=== PATIENT | female | born 1935 | race Two or more races ===

== ENCOUNTER 2023-11-26 11:39 | Outpatient (REF) | payer OTHER, SELFPAY ==
[2023-11-26 14:09] LABS: Creatinine Urine 63.38 mg/dL; Microalbum/Creatinine Ratio Ur 343.9 ug/mg cr (<30)
== END 2023-11-26 11:40 | disposition home or self-care (01) ==
LOC: HO.HHCL 11:39
PROVIDERS: Visit Provider Internal Medicine Geriatric Medicine
DX: E11.69 Type 2 diabetes mellitus with other specified complication (principal); E11.22 Type 2 diabetes mellitus with diabetic chronic kidney disease; I13.0 Hypertensive heart and chronic kidney disease with heart failure and stage 1 through stage 4 chronic kidney disease, or unspecified chronic kidney disease; I50.32 Chronic diastolic (congestive) heart failure; N18.9 Chronic kidney disease, unspecified; Z79.4 Long term (current) use of insulin
CPT/HCPCS: 82043; 82570

== ENCOUNTER 2024-02-28 15:39 | Outpatient (REF) | payer OTHER, SELFPAY ==
[2024-02-28 18:07] LABS: Anion Gap 15 (12-20); Blood Urea Nitrogen 43 mg/dL (9-16); Carbon Dioxide 25 mmol/L (22-29); Chloride 107 mmol/L (96-108); Estimated Glomerular Filt Rate 18; Glucose Random 110 mg/dL (60-115); Potassium 3.7 mmol/L (3.3-5.1); Sodium 143 mmol/L (135-145)
== END 2024-02-28 15:40 | disposition home or self-care (01) ==
LOC: HO.HHCL 15:39
PROVIDERS: Visit Provider Internal Medicine Geriatric Medicine
DX: E11.22 Type 2 diabetes mellitus with diabetic chronic kidney disease (principal); N18.9 Chronic kidney disease, unspecified
CPT/HCPCS: 36415; 80048

== ENCOUNTER 2024-03-16 13:40 | Outpatient (AMB) | payer OTHER, SELFPAY ==
[2024-03-16 13:29] VITALS: BP 122/48; PULSE 76; O2SAT 96
--- NOTE | 2024-03-16 13:29 | HO.NEPHOV_ITS ---
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 She has not had a hemoglobin A1c recently. She has history of breast cancer congestive heart failure. She is in a wheelchair usually but ambulates around her apartment. She denies any nausea, vomiting, diarrhea, shortness of breath, paroxysmal nocturnal dyspnea or orthopnea. She does not take any nonsteroidal anti-inflammatories. She denies any orthostatic symptoms. She has been on angiotensin receptor jayne. Her blood pressure is at goal at home. She does not have any epistaxis, photosensitivity, hematemesis, melena, hematuria, dysuria, flank pain or any new systemic complaints. She claims to be compliant with her medications. Her recent serum creatinine is 2.57. [facility] Medical History Congestive heart failure Asthma Breast cancer, left Coronary artery disease Arthritis Anxiety Hx: UTI (urinary tract infection) Stress incontinence Hyperlipidemia Hypertension Diabetes Surgical History S/P lumpectomy, left breast H/O tubal ligation Family History Daughter History of bilateral breast cancer Daughter History of colon cancer Father Diabetes Mother Heart disease Social History Household Members: Children Housing: Apartment Do you presently have visiting nurse or other home services: Yes (DIGITAL ASSET SPECIALIST) Alcohol intake: never Patient Tobacco Use Status: Never used Tobacco Advance Directives Date on File: 11/25/20 service: No Current occupational status: retired Review of Systems Const All systems reviewed & are unremarkable except as noted in HPI and below Physical Exam Vital Signs: Last Vital Signs Pulse 76 03/16/24 13:29 BP 122/48 L 03/16/24 13:29 Pulse Ox 96 03/16/24 13:29 Oxygen Delivery Method Room Air 03/16/24 13:29 Const General: comfortable and no acute distress Orientation/consciousness: patient oriented x3 HEENT Head: Yes normocephalic Mouth: Normal oral and palatal mucosa present Eyes EOM: EOMs intact bilaterally Neck Neck: Yes supple Resp Auscultation: clear to auscultation bilaterally Cardio Jugular venous distension: no JVD Rate: regular rate Heart sounds: Murmur heart sound present GI Palpation (GI): Soft to palpation Auscultation: normal bowel sounds Neuro General: patient oriented x3 and moves all extremities Results Reviewed Nephrology Results: Hgb 11.0 g/dl (12.0-16.0) L 01/21/24 WBC 8.2 X10*3/uL (4.8-10.8) 01/21/24 Plt Count 294 X10*3/uL (160-400) 01/21/24 Sodium 143 mmol/L (135-145) 02/28/24 Potassium 3.7 mmol/L (3.3-5.1) 02/28/24 Chloride 107 mmol/L (96-108) 02/28/24 Carbon Dioxide 25 mmol/L (22-29) 02/28/24 BUN 43 mg/dL (9-16) H 02/28/24 Creatinine 2.57 mg/dL (0.5-1.4) H 02/28/24 Calcium 9.0 mg/dL (8.4-10.2) 02/28/24 Renal US 04/16/24 Assessment & Plan Assessment & Plan (1) Hypertension: Code(s): I10 - Essential (primary) hypertension Category: Medical Qualifiers: Hypertension type: primary hypertension Qualified Code(s): I10 - Essential (primary) hypertension (2) CKD stage 3b, GFR 30-44 ml/min: Code(s): N18.32 - Chronic kidney disease, stage 3b Category: Medical Plan Marina has diabetic hypertensive renal disease. She is on angiotensin receptor jayne. She maintains good hydration. Her blood pressure is at goal at home. She has no orthostatic symptoms. I ordered renal imaging and CKD blood work. She avoids nonsteroidal anti-inflammatories. She is a great candidate for SGLT2 inhibitor which I plan to initiate at the next visit after reviewing her lab data. I did not make any medication changes today. I explained to her about the stages of chronic kidney disease , its progression and management strategies. Answered all questions. Follow-up appointment given. Orders: Orders Complete Blood Count Auto Diff 03/16/24 N18.32 - Chronic kidney disease, stage 3b, I10 - Essential (primary) hypertension Immunofixation Pnl, Serum 03/16/24 N18.32 - Chronic kidney disease, stage 3b, I10 - Essential (primary) hypertension Parathyroid Hormone Intact 03/16/24 N18.32 - Chronic kidney disease, stage 3b, I10 - Essential (primary) hypertension Blood Urea Nitrogen 03/16/24 N18.32 - Chronic kidney disease, stage 3b, I10 - Essential (primary) hypertension Calcium 03/16/24 N18.32 - Chronic kidney disease, stage 3b, I10 - Essential (primary) hypertension US renal BI 03/16/24 N18.32 - Chronic kidney disease, stage 3b Vitamin D 25-OH Total 03/16/24 N18.32 - Chronic kidney disease, stage 3b, I10 - Essential (primary) hypertension Creatinine 03/16/24 N18.32 - Chronic kidney disease, stage 3b, I10 - Essential (primary) hypertension Electrolytes 03/16/24 N18.32 - Chronic kidney disease, stage 3b, I10 - Essential (primary) hypertension Coding Level of Care Code New Pt Level 4 (29884) Diagnoses Primary hypertension I10 Hypertension type: primary hypertension CKD stage 3b, GFR 30-44 ml/min N18.32
== END 2024-03-16 14:08 | disposition home or self-care (01) ==
PROVIDERS: PCP Internal Medicine Geriatric Medicine; Referring Provider Internal Medicine Geriatric Medicine; Visit Provider Internal Medicine Nephrology
DX: I10 Essential (primary) hypertension (principal); N18.32 Chronic kidney disease, stage 3b
CPT/HCPCS: 99204

== ENCOUNTER → 2024-03-16 13:40 | Outpatient (BNVA) | payer OTHER, SELFPAY | PROVIDERS: PCP Internal Medicine Geriatric Medicine; Referring Provider Internal Medicine Geriatric Medicine; Visit Provider Internal Medicine Nephrology | DX: I12.9 Hypertensive chronic kidney disease with stage 1 through stage 4 chronic kidney disease, or unspecified chronic kidney disease (principal); N18.32 Chronic kidney disease, stage 3b | CPT/HCPCS: 99202 ==

== ENCOUNTER 2024-04-16 13:12 | Outpatient (REF) | payer OTHER, SELFPAY ==
--- NOTE | ~2024-04-16 | US_ITS ---
EXAMINATION: US RETROPERITONEAL LIMITED (RENAL ONLY) CLINICAL INFORMATION: Chronic kidney disease, stage III B. COMPARISON: CT abdomen pelvis dated 09/22/2016. TECHNIQUE: Real-time ultrasound of the kidneys was performed. FINDINGS: RIGHT KIDNEY: Evaluation of the right kidney is limited as the lower pole is not visualized. The visualized right kidney measures 7.3 x 3.1 x 3.1 cm (SAG x AP x TRV). There is cortical thinning appreciated. No calculi or focal parenchymal lesions. No hydronephrosis. LEFT KIDNEY: Evaluation of the left kidney is limited as the lower pole is not visualized. The visualized left kidney measures 9.2 x 4.3 x 4.0 cm (SAG x AP x TRV). No calculi or focal parenchymal lesions. No hydronephrosis. US/US renal BI IMPRESSION: Technically difficult examination secondary to body habitus, overlying bowel gas, and limited mobility. Evaluation of the kidneys is extremely limited as the lower poles were not visualized bilaterally. There is no hydronephrosis bilaterally. No focal parenchymal lesion is identified.
== END 2024-04-16 13:13 | disposition home or self-care (01) ==
LOC: HO.US 13:12
PROVIDERS: PCP Internal Medicine Geriatric Medicine; Visit Provider Internal Medicine Nephrology
DX: N18.32 Chronic kidney disease, stage 3b (principal)
CPT/HCPCS: 76775

== ENCOUNTER 2024-08-20 14:52 | Outpatient (REF) | payer OTHER, SELFPAY ==
--- NOTE | ~2024-08-20 | XR_ITS ---
EXAMINATION: XR KNEE, RIGHT CLINICAL INFORMATION: Chronic knee pain due to DJD COMPARISON: X-rays of the right femur April 2021. TECHNIQUE: 2 views of the right knee supine and superolateral FINDINGS: Chondrocalcinosis There is mild to moderate osteoarthritis of the medial compartment with joint space narrowing marginal osteophytes. Lateral compartment unremarkable. Patellofemoral compartment: Limited evaluation given the lateral view only. No patella view. Suspect marginal osteophytes indicative of at least mild osteoarthritis. No effusion. Arterial calcification noted. XR/XR knee RT 2V IMPRESSION: 1. Osteoarthritis with degenerative changes most prominent in the medial compartment. Chondrocalcinosis. 2. Calcific atherosclerotic disease. Electronically signed by: Drake Slade MD 08/21/2024 09:00 PM [facility]
--- NOTE | ~2024-08-20 | XR_ITS ---
EXAMINATION: XR KNEE, LEFT CLINICAL INFORMATION: Chronic knee pain due to DJD COMPARISON: X-ray left knee 09/24/2021 TECHNIQUE: 2 views of left knee FINDINGS: There is chondrocalcinosis. There is moderate to severe joint space narrowing in the medial compartment with marginal osteophytes indicative of moderate to severe osteoarthritis unchanged. Lateral compartment minimal joint space narrowing indicative of [id number] process. Patellofemoral compartment: Limited evaluation as there is only a lateral view. However findings suggestive of at least mild osteoarthritis. Arterial calcification noted. XR/XR knee LT 2V IMPRESSION: Osteoarthritis with degenerative changes most prominent in the medial compartment being moderate to severe. Chondrocalcinosis. Electronically signed by: Drake Slade MD 08/21/2024 06:02 PM [facility]
== END 2024-08-20 14:53 | disposition home or self-care (01) ==
LOC: HO.HHCX 14:52
PROVIDERS: Visit Provider Internal Medicine Geriatric Medicine
DX: M25.561 Pain in right knee (principal); M25.562 Pain in left knee; G89.29 Other chronic pain
CPT/HCPCS: 73560